=== PATIENT | female | born 1945 | race Caucasian/White ===

== ENCOUNTER → 2016-07-25 | Outpatient (CLI) | payer BC ==
[~2016-07-25] MED LIST: ALEN70TA4 PO; ATOR10TA82 PO; CALC-51 PO; CHOL100010 PO; COEN200C4 PO; FEXO5TAB2 PO; FURO-85 PO; IBUP-103 PO; INSDGI SC; LEVO25TA5 PO; LISI-789 PO; METO25TA3 PO; NSNN50; NVLGI SC; OMEP20CA9 PO; TYLOTC500 PO
--- NOTE | 2016-07-25 12:48 | MAMMOGRAPHY REPORT ---
BILATERAL DIGITAL SCREENING MAMMOGRAM WITH CAD: 07/25/2016 CLINICAL HISTORY: Routine screening. Patient has no complaints. TECHNIQUE: Current study was also evaluated with a Computer Aided Detection (CAD) system. Bilatera l CC and MLO views were obtained. COMPARISON: Comparison is made to exams dated: 07/25/2015 mammogram, 07/22/2014 mammogram, 07/02/2013 m ammogram, 06/19/2012 mammogram, 06/11/2011 mammogram, and 06/08/2010 mammogram - [facility] enter. BREAST COMPOSITION: There are scattered areas of fibroglandular density in both breasts. FINDINGS: No suspicious masses, calcifications, or areas of architectural distortion are noted in e ither breast. There has been no significant interval change compared to prior exams. There are stab le post surgical changes in the right 12:00 breast; a linear scar marker denotes a scar on the right 12:00 breast. Small nodular asymmetry in the left superior breast on the MLO view middle depth is stable compared to prior exams including the 2012 exam. IMPRESSION: ACR BI-RADS CATEGORY 2: BENIGN There is no mammographic evidence of malignancy. A 1 year screening mammogram is recommended. The p atient will receive written notification of the results. Approximately 10% of breast cancers are not detected with mammography. A negative mammographic repor t should not delay biopsy if a clinically suggestive mass is present. Sarah Soto M.D. /:07/25/2016 12:36:43 Heel Stainer: Fadumo HOOVER)([place]), [facility] letter sent: Normal 1/2 BI-RADS Code: ACR BI-RADS Category 2: Benign
== END | disposition home or self-care (01) ==
LOC: C.MAMM 10:02
PROVIDERS: ATTEND Internal Medicine
DX: Z12.31 Encounter for screening mammogram for malignant neoplasm of breast (principal)

== ENCOUNTER → 2016-10-03 | Outpatient (CLI) | payer BC ==
[2016-10-03 11:09] LABS: BASO % 0.7 %; BASO ABS # 0.04 K/uL (0-0.2); COMPLETE YES; EOS % 2.7 %; HEMATOCRIT 36.9 % (37-47); IG% 0.2 %; LYMPH % 26.4 %; LYMPH ABS # 1.55 K/uL (1.2-3.4); MEAN CELL VOLUME 94.6 fL (80-100); MEAN CORPUSCULAR HEMOGLOBIN 29.5 pg (25-34); MEAN CORPUSCULAR HGB CONC 31.2 g/dl (32-36); MEAN PLATELET VOLUME 9.7 fL (7.4-10.4); MONO % 8.2 %; NEUT % 61.8 %; PLATELET COUNT 264 K/uL (130-400); WHITE BLOOD COUNT 5.87 K/uL (4.8-10.8)
[2016-10-03 11:21] LABS: ALT/SGPT 22 U/L (12-78); BLOOD UREA NITROGEN 24 mg/dl (7-18); BUN/CREATININE RATIO 24.4 (10-20); CARBON DIOXIDE 26 mmol/L (21-32); CHLORIDE 105 mmol/L (98-107); CHOLESTEROL 142 mg/dl (0-200); ESTIMATED AVERAGE GLUCOSE 148 mg/dl; GLUCOSE 118 mg/dl (70-99); HA1C FLAG Normal (Normal); POTASSIUM 4.4 mmol/L (3.5-5.1); SODIUM 140 mmol/L (136-145); TRIGLYCERIDES 71 mg/dl (0-150); VERY LOW DENSITY LIPOPROT CALC 14 mg/dl
[2016-10-03 11:23] LABS: CALCIUM 8.7 mg/dl (8.5-10.1)
[2016-10-03 11:31] LABS: ALB/GLOB RATIO 1.3 (0.9-2); ALKALINE PHOSPHATASE 36 U/L (45-117); AST/SGOT 13 U/L (15-37); CHOLESTEROL/HDL RATIO 1.9; HDL CHOLESTEROL 73 mg/dl; LDL CHOLESTEROL CALCULATED 55 mg/dl
== END | disposition home or self-care (01) ==
LOC: C.LABBC 07:40
PROVIDERS: ATTEND Internal Medicine
DX: E03.9 Hypothyroidism, unspecified (principal); E11.69 Type 2 diabetes mellitus with other specified complication; I42.9 Cardiomyopathy, unspecified; E78.5 Hyperlipidemia, unspecified

== ENCOUNTER → 2016-12-07 | Outpatient (CLI) | payer BC ==
[~2016-12-07] MED LIST changes: -ATOR10TA82 PO; +ATOR10TA88 PO
[2016-12-07 11:50] LABS: ESTIMATED AVERAGE GLUCOSE 140 mg/dl; HA1C FLAG Normal (Normal)
--- NOTE | 2016-12-14 15:38 | CODING QUERY MEDICAL NECESSITY ---
SUPPORTING DIAGNOSIS NEEDED A supporting diagnosis is required for the test/procedure performed on this patient in order for us to be reimbursed by the patient's insurance. Please provide a supporting diagnosis for the following test/procedure listed below next to the test name along with your signature. *If there is no additional diagnosis for this patient that would support the following test/procedure please document that below next to the test/procedure. Test(s)/Procedure(s) that require a supporting diagnosis: * HEMOGLOBIN A1C DIAGNOSIS: Provider Signature: Date: Thank you Rocío Travis [employer] Once completed, please kindly fax back to [phone] For questions please call [phone]
== END | disposition home or self-care (01) ==
LOC: C.LABBC 07:53
PROVIDERS: ATTEND Internal Medicine
DX: Z00.00 Encounter for general adult medical examination without abnormal findings (principal); E11.69 Type 2 diabetes mellitus with other specified complication

== ENCOUNTER → 2017-03-01 | Outpatient (CLI) | payer BC ==
[~2017-03-01] MED LIST changes: +ATOR10TA82 PO; -ATOR10TA88 PO; +PERFLUTREN LIPID MICROSPHERE (DEFINITY) IV ONE
--- NOTE | 2017-03-01 11:25 | ECHOCARDIOGRAM REPORT ---
*NOTICE TO RECEIVING LIBERTARIAN AGENCY This information is strictly Confidential and protected under [place] law. [place] law prohibits you from making any further disclosure of this information unless further disclosure is expressly permitted by the written consent of the person to whom it pertains or is authorized by law. A general authorization for the release of medical or other information is not sufficient for this purpose. Hospital accepts no responsibility if the information is made available to any other person, INCLUDING THE PATIENT. Interpretation Summary * Name: ILYA LEWIS Study Date: 03/01/2017 09:21 AM BP: 127/70 mmHg * Patient Location: [facility] HR: 94 * : 1945 (M/d/yyyy) Gender: Female Height: 67 in * Age: 71 yrs Ethnicity: [place] Weight: 147 lb * Ordering Physician: Rocío Sheth * Referring Physician: Rocío Sheth PA-C * Performed By: Cathy Hook RDCS * * Reason For Study: SOB * BSA: 1.8 m2 * -- Conclusions -- * Left ventricular systolic function is severely reduced. * There is severe global hypokinesis of the left ventricle. * Ejection Fraction = 20-25%. * Diastolic dysfunction, Grade II, consistent with elevated left atrial pressure. * There is moderate mitral regurgitation. * There is moderate tricuspid regurgitation. Procedure Details * A complete two-dimensional transthoracic echocardiogram was performed (2D, M-mode, Doppler and color flow Doppler). * A contrast injection of Definity was performed to improve assessment of LV function. * Contrast was injected into an intravenous site in the right arm. * One vial of Definity ultrasound contrast was diluted in normal saline to a total volume of 10 ml. A total of '2' ml of solution was administered during imaging. * Lot # [id number] of Definity utilized for procedure. * Expiration date APR 01. * The attending nurse who injected the contrast agent was JAYLON SHETH RN. Left Ventricle * The left ventricle is mildly dilated. * There is normal left ventricular wall thickness. * Ejection Fraction = 20-25%. * Left ventricular systolic function is severely reduced. * There is severe global hypokinesis of the left ventricle. Right Ventricle * The right ventricle is grossly normal size. * The right ventricular systolic function is normal as assessed by tricuspid annular plane systolic excursion (TAPSE) (normal >1.5 cm). Atria * The left atrium is mildly dilated. * Borderline right atrial enlargement. * No ASD detected; PFO is not assessed. Mitral Valve * The mitral valve is grossly normal. * There is no mitral valve stenosis. * There is moderate mitral regurgitation. Tricuspid Valve * The tricuspid valve is not well visualized, but is grossly normal. * There is no tricuspid stenosis. * There is moderate tricuspid regurgitation. * Doppler findings do not suggest pulmonary hypertension. Aortic Valve * The aortic valve is tricuspid. The leaflet thickness if normal. There is no aortic stenosis, and no significant insufficiency. * The aortic valve opens well. * No hemodynamically significant valvular aortic stenosis. * There is no significant aortic regurgitation. Pulmonic Valve * The pulmonary valve is not well seen, but the Doppler examination is normal without significant regurgitation or stenosis. Great Vessels * The aortic root is normal size. * The pulmonary is not well visualized. Pericardium/Pleural * There is no pericardial effusion. Great Vessels * Normal inferior vena cava size and collapsability with sniff indicates a normal right atrial pressure of 3 mmHg Left Ventricular Diastolic Function * Diastolic dysfunction, Grade II, consistent with elevated left atrial pressure. MMode 2D Measurements and Calculations IVSd 0.63 cm IVSs 0.69 cm LVIDd 6.3 cm LVIDs 5.7 cm LVPWd 1.1 cm LVPWs 1.4 cm IVS/LVPW 0.58 FS 10.0 % EDV(Teich) 199.9 ml ESV(Teich) 156.9 ml EF(Teich) 21.5 % EDV(cubed) 248.0 ml ESV(cubed) 180.5 ml EF(cubed) 27.2 % % IVS thick 10.5 % % LVPW thick 33.6 % LV mass(C)d 218.4 grams LV mass(C)dI 123.1 grams/m\S\2 LV mass(C)s 243.1 grams LV mass(C)sI 137.0 grams/m\S\2 SV(Teich) 43.0 ml SI(Teich) 24.2 ml/m\S\2 SV(cubed) 67.5 ml SI(cubed) 38.0 ml/m\S\2 Ao root diam 3.1 cm Ao root area 7.5 cm\S\2 LA dimension 4.1 cm LA/Ao 1.3 LVAd ap4 36.8 cm\S\2 LVLd ap4 8.4 cm EDV(MOD-sp4) 136.0 ml EDV(sp4-el) 136.8 ml LVAs ap4 31.7 cm\S\2 LVLs ap4 8.0 cm ESV(MOD-sp4) 107.3 ml ESV(sp4-el) 106.5 ml EF(MOD-sp4) 21.1 % EF(sp4-el) 22.2 % LVAd ap2 43.4 cm\S\2 LVLd ap2 8.8 cm EDV(MOD-sp2) 177.0 ml EDV(sp2-el) 181.0 ml LVAs ap2 36.7 cm\S\2 LVLs ap2 8.3 cm ESV(MOD-sp2) 134.9 ml ESV(sp2-el) 138.3 ml EF(MOD-sp2) 23.8 % EF(sp2-el) 23.6 % LVLd %diff 5.0 % EDV(MOD-bp) 158.1 ml LVLs %diff 3.3 % ESV(MOD-bp) 121.7 ml EF(MOD-bp) 23.0 % SV(MOD-sp4) 28.7 ml SI(MOD-sp4) 16.2 ml/m\S\2 SV(MOD-sp2) 42.1 ml SI(MOD-sp2) 23.8 ml/m\S\2 SV(MOD-bp) 36.4 ml SI(MOD-bp) 20.5 ml/m\S\2 SV(sp4-el) 30.3 ml SI(sp4-el) 17.1 ml/m\S\2 SV(sp2-el) 42.7 ml SI(sp2-el) 24.1 ml/m\S\2 Doppler Measurements and Calculations MV E max shawna 112.0 cm/sec MV A max shawna 77.6 cm/sec MV E/A 1.4 MV dec time 0.15 sec Ao V2 max 86.9 cm/sec Ao max PG 3.0 mmHg Ao max PG (full) 1.9 mmHg LV V1 max PG 1.1 mmHg LV V1 max 52.4 cm/sec MR max shawna 431.0 cm/sec MR max PG 74.3 mmHg MR mean shawna 328.4 cm/sec MR mean PG 47.6 mmHg MR VTI 138.7 cm TR max shawna 240.7 cm/sec
== END | disposition home or self-care (01) ==
LOC: C.CPL 09:12
PROVIDERS: ATTEND Physician Assistant
DX: I50.1 Left ventricular failure, unspecified (principal); I50.30 Unspecified diastolic (congestive) heart failure; I08.1 Rheumatic disorders of both mitral and tricuspid valves; R06.02 Shortness of breath